=== PATIENT | male | born 1970 ===

== ENCOUNTER 2022-04-26 19:11 | Inpatient (IN) | payer MEDICARE, OTHER ==
[2022-04-26] MEDS ORDERED: LORazepam 2 MG/ML INJ IM PRN (19:20)
[2022-04-26] MEDS ORDERED: HALOPERIDOL LACTATE 5 MG/ML 1 ML VIAL IM PRN (19:21)
[2022-04-26] MEDS ORDERED: haloperidoL 5 MG TAB PO PRN (19:21)
[2022-04-26] MEDS ORDERED: MAG HYDROX/AL HYDROX/SIMETH 30 ML CUP PO PRN (19:21)
[2022-04-26] MEDS ORDERED: MAGNESIUM HYDROXIDE 2,400 MG/10 ML CUP PO PRN (19:21)
[2022-04-26] MEDS ORDERED: ACETAMINOPHEN TAB 325 MG TAB PO PRN (19:21)
[2022-04-27] MEDS: risperiDONE 1 MG TAB PO SCH ×3 (12:16→20:08)
[2022-04-27] MEDS: BENZTROPINE MESYLATE 1 MG TAB PO SCH ×3 (12:16→20:08)
[2022-04-27] MEDS: QUEtiapine 100 MG TAB PO SCH ×2 (12:16→20:08)
[2022-04-27] MEDS: carBAMazepine 200 MG TAB PO SCH ×3 (12:16→20:07)
[2022-04-27] MEDS: BRIMONIDINE TARTRATE 0.2% DROPS 5 ML BTL BOTH EYES SCH ×3 (12:17→23:21)
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
[2022-04-27] MEDS: AMMONIUM LACTATE 12% LOTION 225 GM BTL TOPICAL SCH (20:08)
[2022-04-28] MEDS: risperiDONE 1 MG TAB PO SCH ×2 (08:15→21:02)
[2022-04-28] MEDS: BENZTROPINE MESYLATE 1 MG TAB PO SCH ×2 (08:16→21:02)
[2022-04-28] MEDS: carBAMazepine 200 MG TAB PO SCH ×2 (08:17→21:02)
[2022-04-28 09:23] LABS: Carbamazepine (Tegretol) 5.2 ug/mL
[2022-04-28] MEDS: BRIMONIDINE TARTRATE 0.2% DROPS 5 ML BTL BOTH EYES SCH ×2 (09:53→17:03)
[2022-04-28] MEDS: AMMONIUM LACTATE 12% LOTION 225 GM BTL TOPICAL SCH ×2 (11:16→21:02)
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
[2022-04-28 16:07] LABS: Chol/HDL Ratio 4.45 Ratio; LDL Cholesterol,Calculated 114.3 mg/dL (0.0-131.0)
[2022-04-28] MEDS ORDERED: QUEtiapine 100 MG TAB PO SCH (21:00)
[2022-04-29] MEDS: BRIMONIDINE TARTRATE 0.2% DROPS 5 ML BTL BOTH EYES SCH ×3 (00:33→16:51)
[2022-04-29] MEDS: carBAMazepine 200 MG TAB PO SCH ×2 (11:03→21:07)
[2022-04-29] MEDS: BENZTROPINE MESYLATE 1 MG TAB PO SCH ×2 (11:03→21:07)
[2022-04-29] MEDS: AMMONIUM LACTATE 12% LOTION 225 GM BTL TOPICAL SCH ×2 (11:03→21:07)
[2022-04-29] MEDS: risperiDONE 1 MG TAB PO SCH (11:03)
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
[2022-04-29] MEDS: risperiDONE 2 MG TAB PO SCH (21:08)
[2022-04-30] MEDS: BRIMONIDINE TARTRATE 0.2% DROPS 5 ML BTL BOTH EYES SCH ×3 (03:43→16:06)
[2022-04-30] MEDS: AMMONIUM LACTATE 12% LOTION 225 GM BTL TOPICAL SCH ×2 (10:57→21:16)
[2022-04-30] MEDS: BENZTROPINE MESYLATE 1 MG TAB PO SCH ×3 (10:57→22:19)
[2022-04-30] MEDS: carBAMazepine 200 MG TAB PO SCH ×3 (10:57→22:19)
[2022-04-30] MEDS: risperiDONE 2 MG TAB PO SCH ×3 (10:58→22:19)
--- NOTE | 2022-04-30 12:16 | P.PN ---
Progress Note - Text Progress Note Date: 04/30/22 Interval History: Patient was seen resting in bed and was directable and agreeable to speak with the tag writer in his room. Currently, the patient continues to report a desire to return back to [facility]. However, the patient does not appear to be happy with any options provided to him and is requesting that his guardian work with social work to find him appropriate housing. As per social work, the guardian has not been responding to our calls. The patient has reportedly been in and out of different group homes. He is uncertain of his housing situation. In regards to his psychiatric symptoms, the patient is not reporting any suicidal or homicidal ideation, intention, and/or plan. He is not reporting any auditory or visual hallucinations. He denies any issues regarding sleep or his appetite. He reports that he is sleeping well. The patient continues to have intermittent episodes of irritability and agitation, especially in regards to his demands for housing. He has been demanding of staff and often requires redirection. Mental Status Exam: General Appearance: Patient appears to be stated age is alert, directable, and cooperative in short conversation. Behavior: Patient is lying down in bed without any agitated behavior. He covers himself with his bedsheet. Poor eye contact. Speech: Patient's speech is low in volume, however fluent. Mood/Affect: Mood is "I'm just tired." Affect is irritable. Suicidality/Homicidality: Patient denies any suicidal or homicidal ideation. Perceptions: Patient denies any auditory or visual hallucinations Though content/process: Fixated on receiving housing however appears to be just oppositional towards staff. Memory and concentration: AOX3, grossly intact for the purposes of this session Judgment and insight: poor Vital Signs Temp 97.5 F L 04/27/22 11:51 Pulse 61 04/27/22 11:51 Resp 22 04/27/22 11:51 BP 87/54 04/27/22 11:51 Pulse Ox 97 04/27/22 11:51 FiO2 Assessment: Schizophrenia Developmental disability Plan: -Patient continues to meet criteria for inpatient psychiatric admission for symptom stabilization and safety. Patient has signed adult voluntary form and medication consent and was placed in patient's chart. -Medications: Continue Risperdal 4 mg by mouth twice a day for mood stabilization/psychosis Continue Tegretol 200 mg by mouth twice a day for mood stabilization Continue Cogentin 1 mg by mouth twice a day for EPS side effects -When necessary Ativan and Haldol for agitation/aggression. -SW on board for discharge planning. Encouraged the patient to participate in milieu.
[2022-04-30] MEDS: LORazepam 1 MG TAB PO PRN (23:26)
[2022-05-01] MEDS: BRIMONIDINE TARTRATE 0.2% DROPS 5 ML BTL BOTH EYES SCH ×3 (01:54→16:09)
[2022-05-01] MEDS: carBAMazepine 200 MG TAB PO SCH ×2 (09:23→20:31)
[2022-05-01] MEDS: AMMONIUM LACTATE 12% LOTION 225 GM BTL TOPICAL SCH ×2 (09:23→20:40)
[2022-05-01] MEDS: BENZTROPINE MESYLATE 1 MG TAB PO SCH ×2 (09:23→20:31)
[2022-05-01] MEDS: risperiDONE 2 MG TAB PO SCH ×2 (09:24→20:30)
--- NOTE | 2022-05-01 21:04 | P.PN ---
Progress Note - Text Progress Note Date: 05/01/22 Interval History: Patient was seen resting in bed and was agreeable to speak with the pattern chart writer in his room. He appears somewhat manipulative on assessment. He is not reporting any auditory or visual hallucinations. When asked about suicidal ideations he states yes, but does not elaborate and starts to joke around with this pattern chart writer. He reports poor mood but affect is mood-incongruent and appears euthymic. He denies any issues regarding sleep or his appetite. Mental Status Exam: General Appearance: Patient appears to be stated age. Behavior: Patient is lying down in bed without any agitated behavior. Good eye contact. Speech: Patient's speech is low in volume and mumbled. Mood/Affect: Mood is "horrible" Affect is euthymic and mood incongruent. Suicidality/Homicidality: Patient denies homicidal ideation, claims suicidal ideation but then chuckles. Perceptions: Patient denies any auditory or visual hallucinations. Though process: Linear Thought content: Makes irrelevant comments. No delusional thought content observed. Memory and concentration: AOX3, grossly intact for the purposes of this session Judgment and insight: chronically poor, has guardian Vital Signs Temp 97.5 F L 04/27/22 11:51 Pulse 61 04/27/22 11:51 Resp 22 04/27/22 11:51 BP 87/54 04/27/22 11:51 Pulse Ox 97 04/27/22 11:51 FiO2 Assessment: Schizophrenia Developmental disability Plan: -Patient continues to meet criteria for inpatient psychiatric admission for symptom stabilization and safety. Patient has signed adult voluntary form and medication consent and was placed in patient's chart. -Medications: Continue Risperdal 4 mg by mouth twice a day for mood stabilization/psychosis Continue Tegretol 200 mg by mouth twice a day for mood stabilization Continue Cogentin 1 mg by mouth twice a day for EPS side effects -When necessary Ativan and Haldol for agitation/aggression. -Encouraged the patient to participate in milieu.
[2022-05-02] MEDS: BRIMONIDINE TARTRATE 0.2% DROPS 5 ML BTL BOTH EYES SCH ×3 (01:17→16:34)
[2022-05-02] MEDS: LORazepam 1 MG TAB PO PRN (03:10)
[2022-05-02] MEDS: AMMONIUM LACTATE 12% LOTION 225 GM BTL TOPICAL SCH ×2 (09:15→23:23)
[2022-05-02] MEDS: risperiDONE 2 MG TAB PO SCH ×2 (09:15→23:21)
[2022-05-02] MEDS: carBAMazepine 200 MG TAB PO SCH ×2 (09:15→23:21)
[2022-05-02] MEDS: BENZTROPINE MESYLATE 1 MG TAB PO SCH ×2 (09:15→23:21)
--- NOTE | 2022-05-02 15:46 | P.PN ---
Progress Note - Text Progress Note Date: 05/02/22 Interval History: Patient was seen resting in bed and was agreeable to speak with the food writer in his room. He is not reporting any auditory or visual hallucinations, or any suicidal or homicidal ideations, intent or plan. He reports mood is "not too good". He denies any issues regarding sleep or his appetite. Mental Status Exam: General Appearance: Patient appears to be stated age, laying in bed with sheets on. Behavior: Patient is lying down in bed without any agitated behavior. Fair eye contact. Speech: Patient's speech is low in volume and mumbled. Mood/Affect: Mood is "not too good", Affect is constricted Suicidality/Homicidality: Patient denies suicidal and homicidal ideation, intent or plan. Perceptions: Patient denies any auditory or visual hallucinations. Though process: Linear Thought content: Makes irrelevant comments. No delusional thought content obse rved. Memory and concentration: AOX3, grossly intact for the purposes of this session Judgment and insight: chronically poor, has guardian Assessment: Schizophrenia Developmental disability Plan: -Patient continues to meet criteria for inpatient psychiatric admission for symptom stabilization and safety. Patient has signed adult voluntary form and medication consent and was placed in patient's chart. -Medications: Continue Risperdal 4 mg by mouth twice a day for mood stabilization/psychosis Continue Tegretol 200 mg by mouth twice a day for mood stabilization Continue Cogentin 1 mg by mouth twice a day for EPS side effects -When necessary Ativan and Haldol for agitation/aggression. -Encouraged the patient to participate in milieu.
[2022-05-03] MEDS: BRIMONIDINE TARTRATE 0.2% DROPS 5 ML BTL BOTH EYES SCH ×3 (02:10→18:17)
[2022-05-03] MEDS: LORazepam 1 MG TAB PO PRN ×2 (03:21→09:54)
[2022-05-03] MEDS: BENZTROPINE MESYLATE 1 MG TAB PO SCH ×3 (09:18→20:44)
[2022-05-03] MEDS: carBAMazepine 200 MG TAB PO SCH ×3 (09:18→20:44)
[2022-05-03] MEDS: risperiDONE 2 MG TAB PO SCH ×3 (09:18→20:44)
[2022-05-03] MEDS: AMMONIUM LACTATE 12% LOTION 225 GM BTL TOPICAL SCH ×2 (09:18→20:45)
--- NOTE | 2022-05-03 19:43 | P.PN ---
Progress Note - Text Progress Note Date: 05/03/22 Interval History: Patient was seen resting in bed and was agreeable to speak with the field underwriter in his room. He is not reporting any auditory or visual hallucinations today. He continues to report suicidal ideations, but does not appear to be in distress or depressed. He appears to be manipulative, and is observed at other times smiling. He is fixated today on getting to his "court hearing" at [facility], and wants to know how he will be transported there, does not want to do it over Zoom. He appears anxious about missing his [facility] evaluation. He denies any issues regarding sleep or his appetite. He is not attending groups, mostly isolates to his room. Mental Status Exam: General Appearance: Patient appears to be stated age, laying in bed with sheets on. Behavior: Patient is lying down in bed without any agitated behavior. Good eye contact. Speech: Patient's speech is low in volume and mumbled, edentulous and difficult to understand at times. Mood/Affect: Mood is "I'm suicidal", Affect is mood incongruent Suicidality/Homicidality: Patient denies homicidal ideation, intent or plan. He reports suicidal ideation but appears to be manipulative in his response. Perceptions: Patient denies any auditory or visual hallucinations. Though process: Linear, goal-directed, future-oriented. Thought content: No delusional thought content observed. Fixated on transportation to his [facility] evaluation. Memory and concentration: AOX3, grossly intact for the purposes of this session Judgment and insight: chronically poor, has guardian Assessment: Schizophrenia Developmental disability Plan: -Patient continues to meet criteria for inpatient psychiatric admission for symptom stabilization and safety. Patient has signed adult voluntary form and medication consent and was placed in patient's chart. -Medications: Continue Risperdal 4 mg by mouth twice a day for mood stabilization/psychosis Continue Tegretol 200 mg by mouth twice a day for mood stabilization Continue Cogentin 1 mg by mouth twice a day for EPS side effects -Social work following up on his [facility] evaluation. -When necessary Ativan and Haldol for agitation/aggression. -Encouraged the patient to participate in milieu.
[2022-05-04] MEDS: BRIMONIDINE TARTRATE 0.2% DROPS 5 ML BTL BOTH EYES SCH ×3 (01:02→16:30)
[2022-05-04] MEDS: AMMONIUM LACTATE 12% LOTION 225 GM BTL TOPICAL SCH ×2 (09:35→21:27)
[2022-05-04] MEDS: carBAMazepine 200 MG TAB PO SCH ×3 (10:00→21:15)
[2022-05-04] MEDS: risperiDONE 2 MG TAB PO SCH ×3 (10:01→21:14)
[2022-05-04] MEDS: BENZTROPINE MESYLATE 1 MG TAB PO SCH ×3 (10:01→21:15)
[2022-05-04 15:31] VITALS: RESP 16
--- NOTE | 2022-05-04 19:59 | P.PN ---
Progress Note - Text Progress Note Date: 05/04/22 Interval History: Patient was seen resting in bed and was agreeable to speak with the parts data writer in his room. He is not reporting any auditory or visual hallucinations today. He denies suicidal ideation or homicidal ideation. He is looking forward to his evaluation at [facility] tomorrow. We discussed discharge tomorrow morning to [facility] for his evaluation and he is in agreement with this plan. He denies any issues regarding his mood, sleep or his appetite. He is not attending groups, mostly isolates to his room, which is his baseline. Mental Status Exam: General Appearance: Patient appears to be stated age, laying in bed with sheets on. Behavior: Patient is lying down in bed without any agitated behavior. Good eye contact. Speech: Patient's speech is low in volume and mumbled, edentulous and difficult to understand at times. Mood/Affect: Mood is "ok", Affect is mood congruent Suicidality/Homicidality: Patient denies suicidal or homicidal ideation, intent or plan. Perceptions: Patient denies any auditory or visual hallucinations. Though process: Linear, goal-directed, future-oriented. Thought content: No delusional thought content observed. Thanks doctor for discharge tomorrow to his [facility] evaluation. Memory and concentration: AOX3, grossly intact for the purposes of this session Judgment and insight: chronically poor, has guardian Assessment: Schizophrenia Developmental disability Plan: -Patient continues to meet criteria for inpatient psychiatric admission for symptom stabilization and safety. direct support worker to contact guardian regarding discharge to [facility] evaluation tomorrow. -Medications: Continue Risperdal 4 mg by mouth twice a day for mood stabilization/psychosis Continue Tegretol 200 mg by mouth twice a day for mood stabilization Continue Cogentin 1 mg by mouth twice a day for EPS side effects -When necessary Ativan and Haldol for agitation/aggression. -Encouraged the patient to participate in milieu.
[2022-05-05 04:23] VITALS: BP 100/58; PULSE 57; TEMP 96.9
[2022-05-05] MEDS: BRIMONIDINE TARTRATE 0.2% DROPS 5 ML BTL BOTH EYES SCH (04:36)
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
== END 2022-05-05 07:10 | DRG 885 ==
LOC: 3MHU 04-27 11:48
PROVIDERS: ADMIT Psychiatry & Neurology Psychiatry; ATTEND Psychiatry & Neurology Psychiatry
DX: F20.9 Schizophrenia, unspecified (principal); R45.851 Suicidal ideations; F14.11 Cocaine abuse, in remission; Z20.822 Contact with and (suspected) exposure to COVID-19; F41.9 Anxiety disorder, unspecified; F89 Unspecified disorder of psychological development; I10 Essential (primary) hypertension; L85.3 Xerosis cutis; H40.9 Unspecified glaucoma; H26.9 Unspecified cataract; J30.2 Other seasonal allergic rhinitis; Z91.51 Personal history of suicidal behavior; Z56.0 Unemployment, unspecified; Z59.00 Homelessness unspecified; Z87.891 Personal history of nicotine dependence; Z71.51 Drug abuse counseling and surveillance of drug abuser; Z88.8 Allergy status to other drugs, medicaments and biological substances; Z82.49 Family history of ischemic heart disease and other diseases of the circulatory system; Z83.6 Family history of other diseases of the respiratory system
CPT/HCPCS: 80061; 80156; 83036; 84443; 87635